=== PATIENT | female | born 1965 | race Caucasian/White ===

== ENCOUNTER 2025-06-23 19:38 | Outpatient (CLI) | payer OTHER, SELFPAY | END 2025-06-23 19:39 | disposition home or self-care (01) | LOC: AMB 06-26 12:21 | PROVIDERS: Visit Provider Emergency Medicine | DX: S09.90XA Unspecified injury of head, initial encounter (principal); V49.40XA Driver injured in collision with unspecified motor vehicles in traffic accident, initial encounter; Y92.410 Unspecified street and highway as the place of occurrence of the external cause | CPT/HCPCS: A0425; A0427 ==